=== PATIENT | male | born 1955 | race Caucasian/White ===

== ENCOUNTER → 2024-08-24 14:45 | Outpatient (REF) | payer OTHER, SELFPAY | LOC: HWRCS 14:45 | PROVIDERS: ATTENDING PHYSICIAN Family Medicine | DX: I48.91 Unspecified atrial fibrillation (principal) | CPT/HCPCS: 93306 ==

== ENCOUNTER → 2024-09-16 07:33 | Day surgery (SDC) | payer OTHER, SELFPAY | LOC: CATH 07:33 | PROVIDERS: ATTENDING PHYSICIAN Student in an Organized Health Care Education/Training Program; FAMILY PHYSICIAN Family Medicine; OTHER PHYSICIAN Student in an Organized Health Care Education/Training Program | DX: I48.91 Unspecified atrial fibrillation (principal); I08.3 Combined rheumatic disorders of mitral, aortic and tricuspid valves; I10 Essential (primary) hypertension; E78.5 Hyperlipidemia, unspecified; Z79.01 Long term (current) use of anticoagulants | CPT/HCPCS: 93312; 93320; 93325; 92960; 93005 ==

== ENCOUNTER → 2024-11-24 12:00 | Outpatient (REF) | payer OTHER, SELFPAY | LOC: DHSLP 12:00 | PROVIDERS: ATTENDING PHYSICIAN Internal Medicine; FAMILY PHYSICIAN Family Medicine | DX: G47.33 Obstructive sleep apnea (adult) (pediatric) (principal) | CPT/HCPCS: 95800 ==

== ENCOUNTER 2025-01-31 08:33 | Day surgery (SDC) | payer OTHER, SELFPAY ==
[2025-01-24 10:00] VITALS: BMI 31.2
[2025-01-24 10:31] LABS: % Basophils 0.4 % (0-2); % Eosinophils 1.4 % (0-6); % Immature Granulocytes 0.4 % (0-0.5); % Lymphocytes 25.7 % (20.5-51.1); % Monocytes 9.2 % (1.7-9.3); % Neutrophils 62.9 % (42.2-75.2); Absolute Eosinophils 0.1 10^3/uL (0-0.7); Absolute Lymphocytes 1.8 10^3/uL (1.2-3.4); Absolute Monocytes 0.7 10^3/uL (0.1-0.6); Absolute Neutrophils 4.4 10^3/uL (1.4-6.5); Hematocrit 43.7 % (39.0-52.0); Mean Corp Hgb Conc. 34.3 g/dL (33.0-37.0); Mean Corpuscular Hgb 32.7 pg (27.0-31.0); Mean Corpuscular Volume 95.2 fL (80.0-94.0); Mean Platelet Volume 8.6 fL (7.4-10.4); Nucleated Red Blood Cells % 0 % (-); Platelet Count 205 10^3/uL (130-400); Red Blood Cell Count 4.59 10^6/uL (4.70-6.10); Red Cell Dist. Width 12.4 % (11.5-14.5)
--- NOTE | 2025-01-24 10:54 | HPS.HSE ---
Family Physician
-
Family Physician: Danuta Lind MD
Chief Complaint
-
Persistent atrial fibrillation.
History of Present Illness
The patient is a 69 year old male presenting today for persistent atrial fibrillation. He was initially diagnosed with his arrhythmia in July 2024 when his primary care physician noted an irregular heart rhythm. His EKG at that visit
confirmed atrial fibrillation. The patient fortunately is asymptomatic despite this diagnosis. He previously underwent a LA-guided cardioversion in August 2024 secondary to his atrial fibrillation. Sadly, his atrial fibrillation returned
approximately 3 days post-procedure. He is on current pharmacological therapy with Metoprolol Succinate. He reports he has been compliant with Eliquis for oral anticoagulation. He is interested in pursuing a Medtronic Affera atrial fibrillation
ablation for more definitive arrhythmia management. He denies any current complaints today such as chest pain, shortness of breath at rest, nausea, vomiting, diarrhea, lightheadedness, dizziness, cough, sore throat, or fever.
Medical History
Past Medical History
Past Medical History: Reports Other
Additional Past Medical History:
1. Persistent atrial fibrillation, status post LA-guided cardioversion 08/2024; pharmacological therapy with Metoprolol Succinate and oral anticoagulation with Eliquis.
2. Hyperlipidemia.
3. Mildly dilated aortic root, 4.0 cm, and ascending aorta, 4.2 cm.
4. Benign childhood heart murmur.
5. Newly diagnosed obstructive sleep apnea, compliant with CPAP.
6. Diverticulosis.
7. Cholelithiasis, asymptomatic.
8. Hepatic and renal cysts.
9. Deviated septum.
10. Actinic keratosis.
11. Mildly elevated transaminase.
12. Obesity, BMI 31.2.
Past Surgical History: Reports Other
Additional Past Surgical History:
1. LA-guided cardioversion.
2. Bilateral inguinal hernia repair.
3. Dental implantation.
4. Colonoscopy.
Social History
Tobacco: Non-smoker
Alcohol: Other (He reports, on average, consuming 2 alcoholic beverages weekly. )
Personal:
Living: Other (He lives with his in a 2 story home. )
Family History
Family History: Not pertinent
Allergies / Home Medications
Allergy/Medication List:
Home medications:
1. Apixaban 5 mg p.o. twice a day.
2. Atorvastatin 10 mg p.o. daily.
3. Cinnamon 500 mg p.o. daily.
4. Co Q10 200 mg p.o. daily.
5. Metoprolol Succinate 25 mg p.o. daily.
6. [place] 3/fish oil 1 capsule p.o. daily.
Allergies: No known allergies.
Review of Systems
-
A 12 point ROS was completed and negative except as noted: Yes
Physical Exam
Vital Signs
Blood pressure 149/91. Heart rate 88. Respirations 18. Pulse ox 97% on room air.
Height 6 feet, 1.5 inches. Weight 108.7 kg. BMI 31.2.
Physical Exam
General: Well Developed, Well Nourished and No Apparent Distress
HEENT: NormoCephalic, Moist mucous membranes, Atraumatic and PERRLA
Respiratory: Clear
Cardiac: Irregular Rhythm
GI: Soft, Non Tender, Non Distended and Other (Obese. )
Musculoskeletal: No Edema and Normal Gait & Station
Skin: Warm and Dry
Neuro: AO x 3 and Nonfocal/grossly intact
Laboratory Results
-
01/24/25 10:07
Sodium 141. Potassium 4.9. BUN 17. Creatinine 1.0. Glucose 110. Calcium 9.6. AST 47. ALT 62. Albumin 4.4. Blood type A positive.
EKG 01/24/2025: Atrial fibrillation.
Transesophageal echocardiogram 09/16/2024: Normal biventricular size and systolic function without regional wall motion abnormality. Ejection fraction is 55-60%. Dilation of the left atrium. No left atrial appendage thrombus. No significant valvular
disease. Mildly dilated aortic root (4.0 cm) and ascending aorta (4.2 cm).
Impression/Plan
-
IMPRESSION/PLAN:
1. Persistent atrial fibrillation: The patient is in need of a Medtronic Affera atrial fibrillation ablation with Dr. Francisco Mar on 01/31/2025. The benefits and risks of the procedure have been explained to the patient. The patient understands
these risks and wishes to proceed. He will not be required to undergo a pre-procedural transesophageal echocardiogram as he has been compliant with his home oral anticoagulation. He is aware to continue his Eliquis uninterrupted up until the night
prior to his upcoming ablation.
[2025-01-24 11:17] LABS: ALT (SGPT) 62 U/L (0-50); AST (SGOT) 47 U/L (17-59); Albumin 4.4 g/dl (3.5-5.0); Alkaline Phosphatase 58 U/L (38-126); Blood Urea Nitrogen 17 mg/dl (9-20); Calcium 9.6 mg/dl (8.4-10.2); Carbon Dioxide 29 mmol/L (22-30); Chloride 106 mmol/L (98-107); Estimated Creatinine Clearance 92 ml/min; Glucose 110 mg/dl (70-99); Potassium 4.9 mmol/L (3.5-5.1); Sodium 141 mmol/L (135-145); Total Bilirubin 0.9 mg/dl (0.2-1.3); Total Protein 7.2 g/dl (6.3-8.2); eGFR > 60.00
[2025-01-31] VITALS (12 sets, daily range): BP systolic 82–125; BP diastolic 65–91; BMI 31.1
[2025-01-31 11:43] LABS: ACT-LR - POC 298 Seconds (116-155)
[2025-01-31 12:04] LABS: ACT-LR - POC 322 Seconds (116-155)
--- NOTE | 2025-01-31 12:56 | ITS.CL.ABL ---
[employer] - Ablation
Ablation
Procedure Report:
AFIB / A flutter ablation:
Mr. Guan is a very pleasant 69 yr old gentleman with medical history significant for symptomatic persistent atrial fibrillation is here in the EP lab for atrial fibrillation / flutter ablation
Date of Procedure:
01/31/2025
Indications:
Symptomatic persistent atrial fibrillation
Pre-Operative Diagnosis:
Persistent atrial fibrillation
Post-Operative Diagnosis:
Persistent atrial fibrillation
Procedure Performed:
Atrial fibrillation ablation with wide area circumferential ablation (WACA) approach for pulmonary vein isolation
Posterior wall isolation
Performing Physician:
Francisco Mar MD
Assistants:
EP staff
Anesthesia:
See anesthesia records
Detailed Description of the Procedure:
Written informed consent was obtained from the patient after a full explanation of the risks and benefits of the procedure including the risks of sedation and anesthesia.
The patient was brought to the electrophysiology laboratory in stable condition in fasting state. Continuous electrocardiographic and hemodynamic monitoring was initiated.
The initial rhythm was atrial fibrillation.
The procedure site was meticulously prepared with surgical scrub and allowed to dry with no pooling. Sterile draping was applied to cover the procedure site. The image intensifier was draped with sterile bag and positioned over the patient. After
infusion of local anesthetic, vascular access was obtained under ultrasound guidance and sheaths were placed over guide wire as detailed below.
The images of the ultrasound of the femoral vessels were stored in patient chart.
Sheath and Catheter Placement:
In the right femoral vein, an 8-Turkmen sheath was placed under ultrasound guidance for use during the ablation procedure. And mapping catheter was intermittently placed in the high right atrium, right ventricle, left atrium and left ventricle. In
the right femoral vein, a 9-Fr sheath was placed for use during intracardiac echo procedure.
The sheaths were upgraded as needed during the case. Intracardiac catheters were positioned using direct fluoroscopic guidance.� ICE catheter was placed in RA. The following catheters / sheaths were placed
Sheaths:
��������� Agilis sheath in right femoral vein upgraded from 8Fr in right femoral vein
��������� 9Fr in left femoral vein
Catheters:
��������� The Affera Sphere 9 catheter -bidirectional D/F� - at locations of HRA, RV, LA and LV.
��������� ICE catheter -AccuNav -� at locations of RA, SVC, and RV.
Heparin was initiated after the access was obtained.
Intracardiac ECHO:
An 8-Turkmen AcuNav intracardiac ECHO (ICE) probe was advanced through the 9-Turkmen sheath in the left femoral vein into the right atrium under fluoroscopic and ICE ultrasound image guidance and a baseline ECHO study was performed. The left atrial
size was dilated. There was trace tricuspid regurgitation. The aortic valve was grossly normal. There was mild to moderately reduced left ventricular systolic function. There is no pericardial effusion. The SUDHA has baseline low velocities. The
pulmonary had good flow identified.
During the procedure, ICE was used for monitoring of complications, guidance of trans-septal puncture, monitor the catheter position and tracking ablation lesions. No change in the pericardial space noted throughout the procedure.
Trans-septal Puncture:
Heparin was initiated and infused to maintain appropriate ACT. A J-tipped guidewire was advanced through into the superior vena cava under fluoroscopic and ICE guidance. The Agilis sheath was advanced into the superior vena cava over a guidewire.
The BRK needle was placed inside the Agilis sheath.� The apparatus was withdrawn until it was in contact with the fossa ovalis. The position was adjusted based on fluoroscopy and ultrasound images from ICE. Under fluoroscopic, hemodynamic and ICE
ultrasound guidance, left atrium was cannulated by advancing the needle. Once atrial septum was cannulated, the needle was pulled back and the guide wire was advanced through the needle into the left atrium. The guide wire was advanced into the left
superior pulmonary vein. Both the sheath and the dilator was advanced into the left atrium. The dilator with the needle was withdrawn. Blood was aspirated from the Agilis sheath and arterial blood confirmed. The sheath was flushed. Saline injection
noted into the left atrium on ICE. The waveform of the LA pressure was recorded. The mapping catheter was advanced in the Agilis sheath into the left pulmonary vein.
3D Electroanatomic Mapping:
Using the Sphere 9 Affera catheter advanced through Agilis sheath into the left atrium, an electroanatomic map (EAM) of the left atrium was created using Moneyspydera� mapping system with Prism-1 software. The map was used for localization of catheter
position and tacking of ablation lesions. The EAM of the left atrium showed a total of 4 PVs with two left and the two right sided pulmonary veins with all electrically connected to the body the LA. It showed scattered scar on the posterior wall of
the LA. The LA was severely dilated in size.
Following the EAM, preparation were made for ablation.
Ablation:
Ablation # 1: Pulmonary vein Isolation:
Pulsed field ablation was performed using an open irrigation, bidirectional, contact sensing, dual energy ablation catheter (Moneyspydera sphere -9) by completing the circumferential lesions around the left and right pulmonary veins achieving pulmonary
vein isolation.
Cardioversion:
Due to the persistence of atrial fibrillation during the case, the decision was made to proceed with a cardioversion followed by the remainder of the ablation as detailed below. Therefore, a 200J shock was delivered to the chest via Zoll patches
placed with hoahaoism of sinus rhythm. The patient remained hemodynamically stable throughout.
Confirmation of the PVI and bidirectional block:
Following achievement of entrance block at the pulmonary veins, pacing from the Sphere 9 affera catheter in each of the four veins at 20 milliamps for 4 milliseconds showed entrance and exit block.
The LA was mapped with The Moneyspydera� mapping system with Prism-1 software in sinus rhythm confirming the line of block at the ablation lesions lines.
There was extensive scar noted in the posterior wall with slowing of conduction making a substance for reentry flutter.
Ablation # 2: Roof line Formation:
There was a clear channel of electrical activity left in the posterior wall with multiple CFAE and AF areas on the roof and ablation in that area increased the risk of atrial flutter and decision was made to create a roof line to block a slow
conduction. A set of pulsed field ablations were placed on the roof line connecting the left superior pulmonary vein ablation lesions to the right superior pulmonary vein lesions rings.
The map of the posterior wall showed the block at roof and conduction from the bottom to top with EAM.
Ablation # 3: Posterior wall isolation with the Box lesions set Formation:
There was a significant fractionation seen in the posterior wall and LA AF foci along with CFAE made it clear as the posterior wall is critical in maintaining the atrial fibrillation and the decision was made to isolate the posterior wall by
creating a �Box� lesions.
A set of Pulsed field ablations were placed on the floor line connecting the left inferior pulmonary vein ablation lesions to the right inferior pulmonary vein lesions rings.
The sphere 9 in the posterior wall showed entrance block and the pacing from the posterior wall showed no exit from the box lesions confirming the exit block.
EP study:
Sinus Node Function: The sinus node functions are within acceptable normal range.
Atrioventricular Geovanna Function: �Normal AV conduction noted.
Procedure End
ICE study was done again that showed no epicardial accumulation. No complications noted.
Following the completion of the EP study, catheters were removed. Protamine 40 mg was given at the end of the procedure and ACT was checked repeatedly. The sheaths were removed and hemostasis achieved with VASCADE and manual compression after
acceptable ACT is achieved.
Left atrial Pressure:
Pre-Procedure: Mean LA pressure was 8mmHg
Fluoro Time:
0.5min
Estimated Blood loss:
<10 cc
Specimens Removed:
None.
Implants / Devices:
None
Urine output:
None
Packs / Drains/ Tubes:
None
Instrument / Sponge Count Correct:
Yes
Complications of the Procedure:
None
Condition of Patient at Time of Transfer:
Hemodynamically stable with no neurological or vascular compromise.
Summary:
��������� Successful atrial fibrillation ablation with circumferential bidirectional line of block at pulmonary venin antra (Pulmonary vein isolation), roof flutter line creation, Posterior wall isolation.
Figures from the Procedure:
Figure 1: The electroanatomic mapping (EAM) of the left atrium with bipolar voltage (purple indicates normal electrical activity with red as no myocardial muscle electric activity indicating a line of block or scar.
[2025-01-31] MEDS: ZOFRAN 4 MG IV (14:14)
--- NOTE | 2025-01-31 16:53 | W.PN.UPDATE ---
Update Note
Progress Note Update
Pt seen post PFA. R groin site with vascade closure, no ht/bleeding, OOB ambulating, urinating without difficulty. Post EKG NSR w/1st deg AVB, no acute changes. Resume eliquis tonight at usual time. Followup at [facility] as scheduled. Home today if groin
site/tele remain stable.
== END 2025-01-31 16:05 | disposition home or self-care (01) ==
LOC: CATH 08:33
PROVIDERS: ATTENDING PHYSICIAN Internal Medicine Cardiovascular Disease; FAMILY PHYSICIAN Family Medicine; OTHER PHYSICIAN Student in an Organized Health Care Education/Training Program
DX: I48.19 Other persistent atrial fibrillation (principal); E78.5 Hyperlipidemia, unspecified; G47.33 Obstructive sleep apnea (adult) (pediatric); K57.90 Diverticulosis of intestine, part unspecified, without perforation or abscess without bleeding; K80.20 Calculus of gallbladder without cholecystitis without obstruction; J34.2 Deviated nasal septum; L57.0 Actinic keratosis; R74.01 Elevation of levels of liver transaminase levels; E66.9 Obesity, unspecified; Z68.31 Body mass index [BMI] 31.0-31.9, adult; Z79.899 Other long term (current) drug therapy; Z79.01 Long term (current) use of anticoagulants
CPT/HCPCS: C1769; C1766; C1894; C1892; C1759; C1733; 36415; 80053; 85025; 85347; 86850; 86900; 86901; 93005; 93655; 93656; 93657; C1760

== ENCOUNTER 2025-02-01 17:21 | Emergency (ER) | payer OTHER, SELFPAY ==
[2025-02-01 17:25] VITALS: BP 127/82
[2025-02-01 17:50] VITALS: BMI 32.6
--- NOTE | 2025-02-01 18:58 | ED.GENMED ---
History of Present Illness
General
Chief Complaint: Skin Problem
Source: patient
Exam Limitations: none
Time Seen by Provider: 02/01/25 17:30
Nursing documentation reviewed up to this point in time: agreed with
History of Present Illness
History of Present Illness:
Patient status post cardiac ablation yesterday afternoon, currently taking Eliquis, presents to ED secondary to continued bleeding from right groin after the procedure. Patient spoke with on-call cardiology service, who advised patient come to ED
for an evaluation. Patient reportedly had Vascade dressing applied after the procedure. Denies dizziness or shortness of breath. Denies weakness. Denies loss of sensation or weakness of the affected leg.
Review of Systems
Review of Systems
Allergies reviewed?: Yes
All Other Systems: ROS reviewed and negative except as documented in HPI and ROS
Constitutional: Reports no symptoms
ABD/GI: Reports no symptoms; Denies abdominal pain, nausea or vomiting
Musculoskeletal: Reports no symptoms
Skin: Reports other (right groin bleeding)
Neurological: Reports no symptoms; Denies weakness
Phy Exam
Physical Exam
Physical Exam:
Physical Exam
General: no apparent distress, not acutely ill. afebrile
Head: nc/at. eomi
Neck: supple. normal range of motion.
Abdomen: normal bowel sounds. not tender.
Neuro: alert and oriented x 3. no focal neurological deficits
Skin: right groin - 2 punctured sites noted without active bleeding, swelling, with mild ecchymosis
Psychiatric: well kept. interactive and cooperative
Extremities: no edema. no calf tenderness.
Course
Orders/Labs/Results
Orders:
Orders
02/01/25 17:50
US Groin (vascular exam) RT Urgent
Comment:
Reason For Exam: right groin swelling/bleeding, s/p cardiac proc
Vital Signs
Initial and Last Documented VS:
Initial Vital Signs
Temp Pulse Resp BP Pulse Ox
97.6 F 79 16 127/82 96
02/01/25 17:25 02/01/25 17:25 02/01/25 17:25 02/01/25 17:25 02/01/25 17:25
Last Documented Vital Signs
Temp Pulse Resp BP Pulse Ox
97.6 F 74 16 103/78 93
02/01/25 17:25 02/01/25 20:31 02/01/25 20:31 02/01/25 20:31 02/01/25 20:31
MDM/Problems Addressed
MDM/Problems Addressed:
Ultrasound groin: No acute findings. Repeat exam: No acute bleeding noted.
Discussed with on-call cardiology, Dr. Becerra, who prefers not to discontinue Eliquis, secondary to increased risk of stroke with recent procedure. As such, Surgicel/Gelfoam will be applied to groin for hemostasis, along with recommendation for
an outpatient follow-up. Patient is to continue Eliquis at this time. Patient and spouse expressed understanding at time of discharge.
*Critical Care Note
Total Time (30-74mins, 75-104mins- exclusive of procedures): Not Applicable
ED Attending Note
-
Portions of this chart may have been created with voice recognition software.� Occasional wrong word or��sound alike� substitutions may have occurred due to the inherent limitations of voice recognition software.
Discharge Plan
Departure
Patient Disposition: Home (Routine Discharge)
Date of Disposition: 02/01/25
Time of Disposition: 20:19
Patient with high blood pressure during this ER visit?: Yes
Condition: Good
Discharge Problem:
Post-op bleeding
Instructions: Bleeding After Surgery
Prescriptions:
No Action
atorvastatin 10 mg Tablet
10 mg PO QPM
metoprolol succinate 25 mg Tablet Extended Release 24 Hr
25 mg PO DAILY
cinnamon bark [Cinnamon] 500 mg Capsule
500 mg PO HS
CoQmax Ubiquinol 200 mg Capsule
200 mg PO HS
Fish Oil 900-1,400 mg Capsule,Delayed Release(Dr/Ec)
1 cap PO HS
Eliquis 5 mg Tablet
5 mg PO BID
multivitamin Tablet
1 tab PO HS
Referrals:
Francisco Mar MD [Active] -
Danuta Lind MD [Family Provider] -
Activity Restrictions/Additional Instructions:
As discussed, please follow-up with your day guard with any further concerns. Until then, please continue Eliquis, as prescribed, along with application of provided dressing.
Interventions
Interventions:
*Risk Screen - Suicide Last Done: 02/01/25 17:25
*General Assessment Last Done: 02/01/25 17:50
*Neglect/Abuse Screening Last Done: 02/01/25 17:25
*ED- Fall Risk Assessment Last Done: 02/01/25 17:50
*ED COVID-19 Vaccine History Last Done: 02/01/25 17:50
*Nursing Disposition Last Done: 02/01/25 20:36
ED-Skin Assessment Last Done: 02/01/25 19:30
Discharge Date and Time
Discharge Date/Time: 02/01/25 20:37
Print Language: IRANIAN
[2025-02-01 20:31] VITALS: BP 103/78
== END 2025-02-01 20:37 | disposition home or self-care (01) ==
LOC: EMR 17:21
PROVIDERS: EMERGENCY PHYSICIAN Emergency Medicine; FAMILY PHYSICIAN Family Medicine
DX: L76.22 Postprocedural hemorrhage of skin and subcutaneous tissue following other procedure (principal); R19.09 Other intra-abdominal and pelvic swelling, mass and lump; Z79.01 Long term (current) use of anticoagulants
CPT/HCPCS: 99284; 93926